=== PATIENT | male | born 1960 | race Asian ===

== ENCOUNTER 2021-01-29 10:36 | Emergency (ER) | payer MEDICARE ==
[~2021-01-29] VITALS: Ht 172.7 cm; Wt 93.2 kg
[2021-01-29 10:46] VITALS: BP 130/94
--- NOTE | 2021-01-29 11:30 | NUR ---
assumed care of pt. pt here for vealuation because he missed a dose of his schizophrenia medications. pt reports that he came here on a bus from the [facility] in [place] and that he did not have his medications today. pt denies hallucinations/delusions. calm and cooperative. denies SI/HI pt is clean and dressed. A&O x4. sitting up on gurney in no apparent distress. awaiting social studies department chair consult
--- NOTE | 2021-01-29 12:09 | NUR ---
no changes. pt sitting up on gurney in position of comfort. using cell phone. awaiting SW consult
--- NOTE | 2021-01-29 12:18 | NUR ---
SRIDEVI Oliver has been to bedside for eval meal tray ordered
--- NOTE | 2021-01-29 13:00 | NUR ---
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
--- NOTE | 2021-01-29 13:15 | NUR ---
Patient given discharge instructions and they have confirmed that they understand the instructions. Patient ambulatory with steady gait. Given taxi voucher to [employer] for bus.
== END 2021-01-29 13:17 | disposition home or self-care (01) ==
LOC: ED 13:00
DX: F20.9 Schizophrenia, unspecified (principal); Z76.0 Encounter for issue of repeat prescription
CPT/HCPCS: 99283